=== PATIENT | female | born 1990 | race American Indian/Alaskan Native ===

== ENCOUNTER 2017-12-02 17:36 | Emergency (ER) | payer OTHER ==
[2017-12-02 18:40] VITALS: BP 107/64
[2017-12-02 19:08] LABS: Bacteria,Urine 1+ /HPF (Negative); Bilirubin,Urine NEG (Negative); Blood,Urine NEG (Negative); Color,Urine Yellow (Yellow); Mucus,Urine 3+ /HPF; Nitrite,Urine NEG (Negative); Urobilinogen,Urine < 2.0 mg/dL (<2.0)
--- NOTE | 2017-12-02 22:40 | Emergency Department Report ---
HPI - General Chief Complaint: Abdominal Pain Time Seen by Provider: 12/02/17 22:24 - HPI HPI: 27-year-old female presents to ED complaining of burning with urination starting going on intermittently for the past month. Patient states that symptoms went away but returned completely days ago. Patient states she's been experiencing urinary frequency. Patient [facility] and found she was . Patient states she has an appointment with her [employer] on the of this month. Patient denies any vaginal bleeding discharge. Patient states last menstrual period as 10/15/2017. Patient admits intermittent nausea but denies fever/chills/abdominal pain/chest pains or shortness of breath. No problems. ED Past Medical Hx - Past Medical History Previous Medical History?: No - Medications Home Medications: Home Medications Medication Instructions Recorded Confirmed Last Taken Type Doxylamine Succinate/Vit B6 2 each PO QHS #30 tablet. 12/02/17 Unknown Rx [Diclegis Dr 10-10 mg Tablet] Fluconazole [Diflucan TAB] 150 mg PO ONCE #1 tablet 12/02/17 Unknown Rx Nitrofurantoin Monohyd/M-Cryst 100 mg PO BID #14 capsule 12/02/17 Unknown Rx [Macrobid 100 mg Capsule] ED Review of Systems ROS: Stated complaint: ABDOMINAL PAIN Other details as noted in HPI Constitutional: denies: chills, fever Eyes: denies: eye pain, eye discharge, vision change ENT: denies: ear pain, throat pain Respiratory: denies: cough, shortness of breath, wheezing Cardiovascular: denies: chest pain, palpitations Endocrine: no symptoms reported Gastrointestinal: nausea. denies: abdominal pain, diarrhea Genitourinary: dysuria, frequency. denies: urgency, discharge Musculoskeletal: denies: back pain, joint swelling, arthralgia Skin: denies: rash, lesions Neurological: denies: headache, weakness, paresthesias Psychiatric: denies: anxiety, depression Hematological/Lymphatic: denies: easy bleeding, easy bruising Physical Exam - Physical Exam Vital Signs: Vital Signs 12/02/17 18:35 Temperature 98.6 F Pulse Rate 65 Respiratory 16 Rate Blood Pressure 107/64 O2 Sat by Pulse 100 Oximetry Physical Exam: GENERAL: Alert and oriented x3, no apparent distress, Normal Gait, atraumatic. HEAD: Head is normocephalic and a-traumatic. LUNGS: Symetrical with respiration, No wheezing, no rales or crackles, CTAB. HEART: S1, S2 present, regular rate and rhythm without murmur, no rubs, no gallops. Non tender to palpation ABDOMEN: No organomegaly was noted,Positive bowel sounds, soft, and non- distended. . Nontender to palpation on all Quadrants, NO CVA tenderness. BACK: Full range of motion, no spinal tenderness, nontender to palpation. SKIN: Warm and dry, No lesions, No ulceration or induration present. ED Course Vital Signs 12/02/17 18:35 Temperature 98.6 F Pulse Rate 65 Respiratory 16 Rate Blood Pressure 107/64 O2 Sat by Pulse 100 Oximetry ED Medical Decision Making - Lab Data Laboratory Last Values Urine Color Yellow (Yellow) 12/02/17 Unknown Urine Turbidity Clear (Clear) 12/02/17 Unknown Urine pH 6.0 (5.0-7.0) 12/02/17 Unknown Ur Specific Dafter 1.032 (1.003-1.030) H 12/02/17 Unknown Urine Protein 30 mg/dl mg/dL (Negative) 12/02/17 Unknown Urine Glucose (UA) Neg mg/dL (Negative) 12/02/17 Unknown Urine Ketones Tr mg/dL (Negative) 12/02/17 Unknown Urine Blood Neg (Negative) 12/02/17 Unknown Urine Nitrite Neg (Negative) 12/02/17 Unknown Urine Bilirubin Neg (Negative) 12/02/17 Unknown Urine Urobilinogen < 2.0 mg/dL (<2.0) 12/02/17 Unknown Ur Leukocyte Esterase Mod (Negative) 12/02/17 Unknown Urine WBC (Auto) 12.0 /HPF (0.0-6.0) H 12/02/17 Unknown Urine RBC (Auto) 4.0 /HPF (0.0-6.0) 12/02/17 Unknown U Epithel Cells (Auto) 11.0 /HPF (0-13.0) 12/02/17 Unknown Urine Bacteria (Auto) 1+ /HPF (Negative) 12/02/17 Unknown Urine Mucus 3+ /HPF 12/02/17 Unknown Urine HCG, Qual Positive (Negative) A 12/02/17 Unknown - Medical Decision Making 27-year-old about 7 weeks gestation presents with urinary tract infection ED course: Urinalysis urine test ordered. UA positive for bacteria, UPT positive. I discussed this with the patient. I discussed the patient to increase fluids daily. Discussed the take antibiotics as given. Patient requested for a Diflucan as she gets these sensations after taking antibiotics. I discussed the patient to keep her appointment for this 28 with her [employer] I discussed the patient and she started to experience worsening symptoms return to ED. Diagnosis is given for nausea. Vital signs are stable. Patient has no events in the ED. Critical care attestation.: If time is entered above; I have spent that time in minutes in the direct care of this critically ill patient, excluding procedure time. ED Disposition Clinical Impression: UTI (urinary tract infection) during Qualifiers: Trimester: first trimester Qualified Code(s): O23.41 - Unspecified infection of urinary tract in , first trimester Disposition: TO HOME OR SELFCARE Is pt being admited?: No Does the pt Need Aspirin: No Condition: Stable Instructions: Abdominal Pain (ED), Dysuria (ED), Urinary Tract Infection in Women (ED), (ED), Morning Sickness (ED) Additional Instructions: Make sure to follow up with the [employer] on the as discussed. Take all your medications as you've been prescribed. If you have any worsening symptoms or develop new symptoms please return to ED immediately. Prescriptions: Doxylamine Succinate/Vit B6 [Diclegifaye Faith 10-10 mg Tablet] 2 each PO QHS #30 tablet. Fluconazole [Diflucan TAB] 150 mg PO ONCE #1 tablet Nitrofurantoin Monohyd/M-Cryst [Macrobid 100 mg Capsule] 100 mg PO BID #14 capsule Referrals: SEBASTIAN TRINIDAD MD [Primary Care Provider] - 3-5 Days MARCOS DIAZ MD [Referring] - 3-5 Days Forms: Accompanied Note, Work/School Release Form(ED) Time of Disposition: 23:25
[2017-12-02 22:41] LABS: HCG Qualitative,Urine Positive (Negative)
== END 2017-12-02 23:45 | disposition home or self-care (01) ==
LOC: ED 17:36
DX: O23.31 Infections of other parts of urinary tract in pregnancy, first trimester (principal); Z3A.01 Less than 8 weeks gestation of pregnancy
CPT/HCPCS: 81001; 81025; 99283